=== PATIENT | male | born 1990 | race Two or more races ===

== ENCOUNTER 2018-06-24 10:26 | Inpatient (IN) | payer SELFPAY ==
[~2018-06-24] VITALS: Ht 175.3 cm; Wt 122.5 kg
[2018-06-24] MEDS ORDERED: cefTRIAXone SOD 1,000 MG VL IM ONE (11:00)
[2018-06-24] MEDS ORDERED: SODIUM CHLORIDE 0.9% 1,000 ML IV ONE (12:56)
[2018-06-24] MEDS ORDERED: cefTRIAXone SOD 1,000 MG VL IV ONE (13:00)
[2018-06-24 13:41] LABS: Basophils # (auto) 0 uL; Basophils % (auto) 0.4 % (0.0-2.0); Eosinophils # (auto) 0.1 uL; Eosinophils % (auto) 0.7 % (0.0-7.0); Hematocrit 46.7 % (41.0-53.0); Hemoglobin 15.7 g/dL (13.5-17.5); Lymphocytes # (auto) 2.2 uL; Lymphocytes % (auto) 28.2 % (10.0-50.0); Mean Corpuscular Hemoglobin 30.1 pg (28.0-32.0); Mean Corpuscular Hgb Conc. 33.6 g/dL (32.0-36.0); Mean Corpuscular Volume 89.6 fL (80.0-100.0); Monocytes # (auto) 0.9 uL; Monocytes % (auto) 11.4 % (0.0-12.0); Neutrophils # (auto) 4.7 uL; Neutrophils % (auto) 59.3 % (37.0-80.0); Nucleated Red Blood Cells % 0.3 %; Platelet Count (auto) 211 10^3/uL (140-450); Red Blood Cells 5.21 10^6/uL (4.5-5.90); White Blood Cell 7.9 10^3/uL (4.4-10.8)
[2018-06-24 13:56] LABS: INR 1.01 (0.9-1.15); Partial Thromboplastin Time 30.3 sec (23.78-33.04); Prothrombin Time 10.8 sec (9.27-12.13)
[2018-06-24] MEDS ORDERED: LACTULOSE 20Gm/30ML SOLN PO PRN (14:15)
[2018-06-24] MEDS ORDERED: MORPHINE SULFATE 4 MG/ML SYR/VIAL IV PRN (14:15)
[2018-06-24] MEDS ORDERED: AZITHROMYCIN 500MG/ 250ML 250 ML IV ONE (14:15)
[2018-06-24] MEDS ORDERED: traMADol HCL 50 MG TAB PO PRN (14:15)
[2018-06-24] MEDS ORDERED: ONDANSETRON HCL 4 MG/2 ML VIAL IV PRN (14:15)
[2018-06-24] MEDS ORDERED: ACETAMINOPHEN 500 MG TAB PO PRN (14:15)
[2018-06-24] MEDS ORDERED: KETOROLAC TROMETH 30 MG/ML 1ML VIAL IV PRN (14:15)
[2018-06-24] MEDS ORDERED: NITROGLYCERIN 0.4 MG SL TAB SL PRN (14:15)
[2018-06-24] MEDS: SODIUM CHLORIDE 0.9% 1,000 ML IV SCH ×2 (14:44→22:01)
[2018-06-24] MEDS ORDERED: PANTOPRAZOLE 40 MG TAB PO ONE (14:45)
[2018-06-24] MEDS ORDERED: ENOXAPARIN SOD 40 MG/0.4 ML SYRINGE SC ONE (14:45)
[2018-06-24 15:06] VITALS: BP 128/73
[2018-06-24 16:40] LABS: Anion Gap 11 (5-15); Blood Urea Nitrogen 16 mg/dL (7-18); Carbon Dioxide 23 mmol/L (21-32); Chloride 105 mmol/L (98-107); Glucose 76 mg/dL (74-106); Potassium 4.1 mmol/L (3.5-5.1); Sodium 139 mmol/L (136-145)
[2018-06-24 16:41] LABS: Alanine Aminotransferase 31 U/L (16-61); Alkaline Phosphatase 61 U/L (45-117); Aspartate Aminotransferase 17 U/L (15-37); BUN/Creatinine Ratio 11.6; Bilirubin, Total 0.4 mg/dL (0.2-1.0); GFR African American 78 mL/min; GFR Non-African American 65 mL/min
[2018-06-24 16:42] LABS: Albumin 3.6 g/dL (3.4-5.0); Total Protein 7.9 g/dL (6.4-8.2)
[2018-06-24 16:43] LABS: Amylase 48 U/L (25-115); Lipase 117 U/L (73-393)
[2018-06-24 16:55] LABS: Alcohol, Urine < 3.0 mg/dL (0-5); Amphetamine Screen, Urine NEGATIVE (NEGATIVE); Barbiturate Scree,Urine NEGATIVE (NEGATIVE); Benzodiazephine Screen, Urine NEGATIVE (NEGATIVE); Cannabinoid Screen, Urine NEGATIVE (NEGATIVE); Cocaine Screen, Urine NEGATIVE (NEGATIVE); Opiate Scree,Urine NEGATIVE (NEGATIVE); Phencyclidine Screen, Urine NEGATIVE (NEGATIVE)
[2018-06-24 16:57] LABS: Urine Bacteria NONE SEEN /hpf (None Seen); Urine Blood Negative /uL (Negative); Urine Specific Gravity 1.013 (1.001-1.035); Urine WBC <1 /hpf (0 - 3)
[2018-06-24] MEDS: ALBUTEROL SULF 2.5 MG/0.5ML(0.5%) NEB SOLN NEB SCH (18:40)
[2018-06-24 20:45] VITALS: BP 116/85
[2018-06-24 21:30] VITALS: BP 116/85
[2018-06-24] MEDS: LORazepam 0.5 MG TAB PO PRN (22:33)
[2018-06-25] MEDS: ALBUTEROL SULF 2.5 MG/0.5ML(0.5%) NEB SOLN NEB SCH ×4 (00:49→18:16)
[2018-06-25] MEDS: TEMAZEPAM 15 MG CAP PO PRN (01:47)
[2018-06-25 05:00] VITALS: BP 114/71
[2018-06-25] MEDS ORDERED: ALB5IS NEB (05:51)
[2018-06-25] MEDS: SODIUM CHLORIDE 0.9% 1,000 ML IV SCH ×2 (06:01→15:13)
[2018-06-25 08:00] VITALS: BP 110/41
[2018-06-25] MEDS: cefTRIAXone 1GM/10ml IVPUSH 10 ML IV SCH (08:59)
[2018-06-25 09:00] VITALS: BP 110/41
[2018-06-25] MEDS: PANTOPRAZOLE 40 MG TAB PO SCH (10:15)
[2018-06-25] MEDS: AZITHROMYCIN 500MG/ 250ML 250 ML IV SCH (10:16)
[2018-06-25] MEDS: ENOXAPARIN SOD 40 MG/0.4 ML SYRINGE SC SCH (10:17)
[2018-06-25] MEDS: predniSONE 20 MG TAB PO SCH (11:00)
[2018-06-25 13:00] VITALS: BP 110/58
[2018-06-25 17:39] VITALS: BP 123/75
[2018-06-25] MEDS: BUDESONIDE (INHALATION) 0.5 MG/2 ML NEB NEB SCH (18:16)
[2018-06-25 21:30] VITALS: BP 126/74
[2018-06-26] VITALS (7 sets, daily range): BP systolic 132–142; BP diastolic 65–82
[2018-06-26] MEDS: SODIUM CHLORIDE 0.9% 1,000 ML IV SCH ×3 (00:07→14:01)
[2018-06-26] MEDS: ACETYLCYSTEINE ORAL for CIN 20%(200MG/ML) 4ML PO SCH ×2 (00:07→11:48)
[2018-06-26] MEDS: ALBUTEROL SULF 2.5 MG/0.5ML(0.5%) NEB SOLN NEB SCH ×6 (00:24→18:37)
[2018-06-26] MEDS: LORazepam 0.5 MG TAB PO PRN ×2 (04:30→20:14)
[2018-06-26] MEDS: ALBUTEROL SULF 2.5 MG/0.5ML(0.5%) NEB SOLN NEB PRN ×2 (04:49→10:58)
[2018-06-26] MEDS: BUDESONIDE (INHALATION) 0.5 MG/2 ML NEB NEB SCH ×2 (06:14→18:36)
[2018-06-26] MEDS ORDERED: ALBUTEROL SULF 2.5 MG/0.5ML(0.5%) NEB SOLN NEB PRN (06:30)
[2018-06-26 06:35] LABS: Basophils # (auto) 0 uL; Basophils % (auto) 0.2 % (0.0-2.0); Eosinophils # (auto) 0 uL; Eosinophils % (auto) 0.6 % (0.0-7.0); Hematocrit 42.9 % (41.0-53.0); Hemoglobin 14.9 g/dL (13.5-17.5); Lymphocytes # (auto) 2.5 uL; Mean Corpuscular Hemoglobin 31.4 pg (28.0-32.0); Mean Corpuscular Hgb Conc. 34.8 g/dL (32.0-36.0); Mean Corpuscular Volume 90.2 fL (80.0-100.0); Monocytes # (auto) 0.8 uL; Monocytes % (auto) 10.6 % (0.0-12.0); Neutrophils # (auto) 3.9 uL; Neutrophils % (auto) 53.6 % (37.0-80.0); Platelet Count (auto) 202 10^3/uL (140-450); Red Blood Cells 4.76 10^6/uL (4.5-5.90); White Blood Cell 7.3 10^3/uL (4.4-10.8)
[2018-06-26 06:55] LABS: Calcium 7.9 mg/dL (8.5-10.1); Potassium 3.5 mmol/L (3.5-5.1)
[2018-06-26 07:28] LABS: BUN/Creatinine Ratio 13.4
[2018-06-26] MEDS: cefTRIAXone 1GM/10ml IVPUSH 10 ML IV SCH (09:09)
[2018-06-26] MEDS: PANTOPRAZOLE 40 MG TAB PO SCH (10:33)
[2018-06-26] MEDS: predniSONE 20 MG TAB PO SCH (10:34)
[2018-06-26] MEDS: ENOXAPARIN SOD 40 MG/0.4 ML SYRINGE SC SCH (10:34)
[2018-06-26] MEDS: AZITHROMYCIN 500MG/ 250ML 250 ML IV SCH (10:34)
[2018-06-26] MEDS: methylPREDNISolone SOD SUCC 40 MG/ML VL IV SCH ×2 (17:54→23:41)
[2018-06-26] MEDS: TEMAZEPAM 15 MG CAP PO PRN (22:20)
[2018-06-27 04:51] VITALS: BP 128/71
[2018-06-27] MEDS: methylPREDNISolone SOD SUCC 40 MG/ML VL IV SCH ×3 (05:53→18:01)
[2018-06-27 05:59] LABS: Basophils # (auto) 0 uL; Basophils % (auto) 0.3 % (0.0-2.0); Eosinophils # (auto) 0 uL; Hematocrit 46.4 % (41.0-53.0); Lymphocytes # (auto) 1.3 uL; Mean Corpuscular Hemoglobin 30.9 pg (28.0-32.0); Mean Corpuscular Hgb Conc. 34.4 g/dL (32.0-36.0); Mean Corpuscular Volume 89.7 fL (80.0-100.0); Monocytes # (auto) 0.2 uL; Monocytes % (auto) 2.3 % (0.0-12.0); Neutrophils # (auto) 7.8 uL; Neutrophils % (auto) 83.4 % (37.0-80.0); Nucleated Red Blood Cells % 0.1 %; Platelet Count (auto) 261 10^3/uL (140-450); Red Blood Cells 5.17 10^6/uL (4.5-5.90); Red Cell Distribution Width 12.7 % (11.8-14.3); White Blood Cell 9.4 10^3/uL (4.4-10.8)
[2018-06-27 06:15] LABS: BUN/Creatinine Ratio 14.6; Calcium 8.7 mg/dL (8.5-10.1); Potassium 4.5 mmol/L (3.5-5.1)
[2018-06-27] MEDS: BUDESONIDE (INHALATION) 0.5 MG/2 ML NEB NEB SCH ×2 (06:49→18:32)
[2018-06-27] MEDS: ALBUTEROL SULF 2.5 MG/0.5ML(0.5%) NEB SOLN NEB SCH ×4 (06:50→18:32)
[2018-06-27 09:00] VITALS: BP 123/63
[2018-06-27] MEDS: PANTOPRAZOLE 40 MG TAB PO SCH (10:07)
[2018-06-27] MEDS: AZITHROMYCIN 500MG/ 250ML 250 ML IV SCH (10:07)
[2018-06-27] MEDS: ENOXAPARIN SOD 40 MG/0.4 ML SYRINGE SC SCH (10:07)
[2018-06-27] MEDS ORDERED: CEFTRIAXONE SODIUM 2 GM in D5W 5% 50 ML IV ONE (11:15)
[2018-06-27 13:07] VITALS: BP 131/83
[2018-06-27 13:24] VITALS: BP 131/83
[2018-06-27 16:54] VITALS: BP 135/66
[2018-06-27 21:34] VITALS: BP 137/62
[2018-06-28] MEDS: methylPREDNISolone SOD SUCC 40 MG/ML VL IV SCH ×3 (00:10→13:05)
[2018-06-28 04:40] VITALS: BP 134/76
[2018-06-28] MEDS: ALBUTEROL SULF 2.5 MG/0.5ML(0.5%) NEB SOLN NEB SCH ×3 (06:08→14:10)
[2018-06-28] MEDS: BUDESONIDE (INHALATION) 0.5 MG/2 ML NEB NEB SCH (06:08)
[2018-06-28 07:38] LABS: Potassium 4.2 mmol/L (3.5-5.1)
[2018-06-28 07:43] LABS: BUN/Creatinine Ratio 22.8; Basophils # (auto) 0 uL; Basophils % (auto) 0.1 % (0.0-2.0); Calcium 8.9 mg/dL (8.5-10.1); Eosinophils # (auto) 0 uL; Hematocrit 46.3 % (41.0-53.0); Hemoglobin 15.5 g/dL (13.5-17.5); Lymphocytes # (auto) 1.9 uL; Lymphocytes % (auto) 12.5 % (10.0-50.0); Mean Corpuscular Hemoglobin 29.9 pg (28.0-32.0); Mean Corpuscular Hgb Conc. 33.5 g/dL (32.0-36.0); Mean Corpuscular Volume 89.1 fL (80.0-100.0); Monocytes # (auto) 0.4 uL; Monocytes % (auto) 2.8 % (0.0-12.0); Neutrophils # (auto) 12.6 uL; Neutrophils % (auto) 84.6 % (37.0-80.0); Platelet Count (auto) 305 10^3/uL (140-450); Red Blood Cells 5.19 10^6/uL (4.5-5.90); Red Cell Distribution Width 12.8 % (11.8-14.3); White Blood Cell 14.9 10^3/uL (4.4-10.8)
[2018-06-28 08:00] VITALS: BP 127/72
[2018-06-28] MEDS: AZITHROMYCIN 500MG/ 250ML 250 ML IV SCH (08:58)
[2018-06-28] MEDS: PANTOPRAZOLE 40 MG TAB PO SCH (08:58)
[2018-06-28] MEDS: ENOXAPARIN SOD 40 MG/0.4 ML SYRINGE SC SCH (10:00)
[2018-06-28] MEDS ORDERED: CEFTRIAXONE SODIUM 2 GM in D5W 5% 50 ML IV SCH (10:00)
[2018-06-28 11:37] VITALS: BP 124/68
== END 2018-06-28 16:19 | disposition home or self-care (01) | DRG 152 ==
LOC: ER 10:26 → TELE 10:27 → TELE-WESTW 20:47
PROVIDERS: ADMIT Internal Medicine; ATTEND Internal Medicine
DX: J02.0 Streptococcal pharyngitis (principal); J18.1 Lobar pneumonia, unspecified organism; J45.901 Unspecified asthma with (acute) exacerbation; J98.11 Atelectasis; Z87.891 Personal history of nicotine dependence; Z87.81 Personal history of (healed) traumatic fracture
CPT/HCPCS: 36415; 71046; 71250; 76705; 80048; 80053; 80307; 81001; 82150; 82550; 83690; 84484; 85025; 85379; 85610; 85652; 85730; 86141; 87040; 87070; 87205; 87804; 93005; 94640; 96361; 96365; 96372; J0696; J7060